=== PATIENT | female | born 1990 | race Caucasian/White ===

== ENCOUNTER 2016-06-01 14:51 | Emergency (ER) | payer OTHER ==
[2016-06-01 16:05] VITALS: BP 107/61
--- NOTE | 2016-06-01 16:52 | UC ---
Throat Pain/Nasal [place] HPI - HPI Summary HPI Summary: complaint of nasal congestion cough and sore throat that started 2 weeks ago both ears are constantly poopping thick green nasal discharge frequent headaches denies fever and chills taking acetaminophen and nasocort without relief LMP 05/02/16 2 home [ tests appt with residential treatment counselor ION 06/15/16 mild cramping feeling yesterday and today denies abdominal pain vaginal discharge or bleeding - History of Current Complaint Chief Complaint: UCRespiratory Stated Complaint: RESPIRATORY Time Seen by Provider: 06/01/16 16:43 Hx Obtained From: Patient Hx Last Menstrual Period: 05/02/16 - Allergies/Home Medications Allergies/Adverse Reactions: Allergies Allergy/AdvReac Type Severity Reaction Status Date / Time Amoxicillin Allergy Intermediate Hives Verified 06/01/16 16:05 Home Medications: Home Medications Cyclobenzaprine TAB* [Flexeril TAB*] 10 mg PO TID 06/01/16 [History Confirmed ] Loratadine [Claritin] 10 mg PO DAILY 06/01/16 [History Confirmed 06/01/16] Mometasone NASAL (NF) [Nasonex (NF)] 50 mcg NA DAILY 06/01/16 [History Confirmed 06/01/16] busPIRone TAB* [Buspar TAB*] 10 mg PO BID 06/01/16 [History Confirmed 06/01/16] PMH/Surg Hx/FS Hx/Imm Hx Previously Healthy: Yes - Respiratory History Of: Reports: Asthma - Surgical History Surgical History: Yes Surgery Procedure, Year, and Place: gallbladder - Family History Known Family History: Negative: Cardiac Disease, Hypertension, Diabetes - Social History Occupation: Unemployed Lives: With Family Alcohol Use: None Substance Use Type: None Smoking Status (MU): Heavy Every Day Tobacco Smoker Type: Cigarettes Amount Used/How Often: 1 ppd Length of Time of Smoking/Using Tobacco: since 17 age Have You Smoked in the Last Year: Yes Cessation Counseling: Patient Advised to Stop Review of Systems Constitutional: Negative Skin: Negative Eyes: Negative ENT: Sore Throat, Ear Ache, Nasal Discharge Respiratory: Cough Cardiovascular: Negative Gastrointestinal: Negative Genitourinary: Negative Motor: Negative Neurovascular: Negative Musculoskeletal: Negative Neurological: Negative Psychological: Negative All Other Systems Reviewed And Are Negative: Yes Physical Exam Triage Information Reviewed: Yes Appearance: No Pain Distress, Well-Nourished, Ill-Appearing Vital Signs: Initial Vital Signs Temp 98.5 F 06/01/16 15:57 Pulse 64 06/01/16 15:57 Resp 16 06/01/16 15:57 BP 107/61 06/01/16 15:57 Pulse Ox 100 06/01/16 15:57 Vital Signs Reviewed: Yes Eyes: Positive: Conjunctiva Clear ENT: Positive: Pharyngeal erythema, Nasal congestion, Nasal drainage, TMs normal , Other: - maxillary sinus tenderness Neck: Positive: No Lymphadenopathy Respiratory: Positive: Lungs clear, Normal breath sounds, No respiratory distress Cardiovascular: Positive: RRR, No Murmur Abdomen Description: Positive: Nontender, Soft. Negative: CVA Tenderness (R), CVA Tenderness (L), Distended, Guarding Bowel Sounds: Positive: Present Musculoskeletal: Positive: No Edema Neurological: Positive: Alert Psychological Exam: Normal Skin Exam: Normal Throat Pain/Nasal Course/Dx - Course Course Of Treatment: exam completed. pt illness over 2 weeks. alicia treat with zithromax as recommended by up to date for women with sinusitis. - negative for abdominal pain on exam, afebrile, no vaginal bleeding. 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 - discussed if she begins to have cramping and pain that is increasing to seek care in ED and pt states understanding - Differential Dx/Diagnosis Provider Diagnoses: sinusitis - Physician Notification/Consults Discussed Patient Care With: Dr Mcneill Time Discussed With Above Provider: 17:00 Discharge - Discharge Plan Condition: Stable Disposition: HOME Prescriptions: Azithromycin TAB* [Zithromax TAB (Z-RAPHAEL) 250 mg #6 tabs] 2 tab PO .TODAY, THEN 1 DAILY #1 raphael Patient Education Materials: Sinusitis (ED), (ED) Referrals: Non Staff,Doctor [Primary Care Provider] - [facility] [Outside] Additional Instructions: Please take antibiotic as directed. Increase fluids and rest Take acetaminophen for fever or pain I f you develop abdominal pain, vaginal bleeding heavy cramping or fever please seek care in the Emergency Department. Please review your discharge instructions. If your symptoms do not improve please call your primary care provider or return to urgent care.
== END 2016-06-01 17:22 | disposition home or self-care (01) ==
LOC: UCCORT 14:51
DX: O26.899 Other specified pregnancy related conditions, unspecified trimester (principal); J32.9 Chronic sinusitis, unspecified; Z88.0 Allergy status to penicillin; F17.210 Nicotine dependence, cigarettes, uncomplicated
CPT/HCPCS: 99202; G0463

== ENCOUNTER 2018-02-15 16:57 | Emergency (ER) | payer OTHER ==
[2018-02-15 17:34] VITALS: BP 101/68
[2018-02-15] MEDS ORDERED: Cyclobenzaprine TAB* 10 MG PO ONE (19:05)
[2018-02-15] MEDS ORDERED: Ketorolac INJ* 30 MG/ML 1 ML VIAL IM ONE (19:05)
[2018-02-15] MEDS ORDERED: Acetaminophen TAB* 325 MG PO ONE (19:05)
--- NOTE | 2018-02-15 20:46 | UC ---
General HPI - HPI Summary HPI Summary: pt complains of right shoulder, neck, and upper right back pain. she states that she fell a few days ago, landed on her right arm. she heard a crack in her neck. she has been having these pains as stated above. she has taken flexeril and it helped a little. - History of Current Complaint Chief Complaint: UCUpperExtremity Stated Complaint: RIGHT SHOULDER PAIN Hx Obtained From: Patient Hx Last Menstrual Period: 01/31/18 has had tubal Onset/Duration: Sudden Onset Onset Severity: Moderate Current Severity: Moderate Pain Intensity: 6 Associated Signs & Symptoms: Positive: Back Pain, Trauma. Negative: Abdominal Pain, Confusion, Cough, Chest Pain, Dizziness, Diarrhea, Dysuria, Edema, Fever, Headache, Hemoptysis, Melena, Nausea, Palpitations, Syncope, SOB, Vomiting, Wheezing, Weakness - Allergy/Home Medications Allergies/Adverse Reactions: Allergies Allergy/AdvReac Type Severity Reaction Status Date / Time amoxicillin Allergy Intermediate Rash Verified 02/15/18 17:34 Penicillins Allergy Intermediate Rash Verified 02/15/18 17:34 Home Medications: Home Medications diPHENhydraMINE PO* [Benadryl PO 25 MG TAB*] 25 mg PO BEDTIME PRN 02/15/18 [ History Confirmed 02/15/18] PMH/Surg Hx/FS Hx/Imm Hx Previously Healthy: Yes - Surgical History Surgical History: Yes Surgery Procedure, Year, and Place: gallbladder. removal of fallopian tubes - Family History Known Family History: Negative: Cardiac Disease, Hypertension, Diabetes - Social History Alcohol Use: Rare Substance Use Type: None Smoking Status (MU): Heavy Every Day Tobacco Smoker Type: Cigarettes Amount Used/How Often: 1/2 to 1 ppd Length of Time of Smoking/Using Tobacco: since 17 age Have You Smoked in the Last Year: Yes Review of Systems Constitutional: Negative Skin: Negative Eyes: Negative ENT: Negative Respiratory: Negative Cardiovascular: Negative Gastrointestinal: Negative Motor: Negative Neurovascular: Negative Musculoskeletal: Other: - right shoulder upper chest and upper back pain Neurological: Negative Psychological: Negative Is Patient Immunocompromised?: No All Other Systems Reviewed And Are Negative: No Physical Exam Triage Information Reviewed: Yes Appearance: Well-Appearing, No Pain Distress, Well-Nourished, Ill-Appearing Vital Signs: Initial Vital Signs Temp 97.3 F 02/15/18 17:26 Pulse 88 02/15/18 17:26 Resp 17 02/15/18 17:26 BP 101/68 02/15/18 17:26 Pulse Ox 99 02/15/18 17:26 Vital Signs Reviewed: Yes Eye Exam: Normal Eyes: Positive: Conjunctiva Clear, Conjunctiva Inflamed ENT Exam: Normal ENT: Positive: Hearing grossly normal, Pharyngeal erythema, TMs normal. Negative: Nasal drainage, Tonsillar exudate, Trismus Dental Exam: Normal Neck exam: Normal Neck: Positive: Supple, Nontender Respiratory Exam: Normal Respiratory: Positive: Chest non-tender, Lungs clear, Normal breath sounds, No respiratory distress Cardiovascular Exam: Normal Cardiovascular: Positive: RRR, No Murmur, Pulses Normal Abdomen Description: Positive: Nontender, Soft Bowel Sounds: Positive: Present Musculoskeletal: Positive: Other: - pt is tender to palpation to her right trapezius muscle and her right upper chest wall. she is able to raise her right arm all the way to her right ear without any difficulty. Neurological Exam: Normal Psychological Exam: Normal Course/Dx - Course Course Of Treatment: xrays of c-spine, chest and right shoulder show no evidence of frx. pt given tylenol, motrin and flexeril. she is feeling better. she was given a work excuse. she states she still has flexeril at home. - Differential Dx - Multi-Symptom Provider Diagnoses: muscle strain Discharge - Sign-Out/Discharge Documenting (check all that apply): Patient Departure All imaging exams completed and their final reports reviewed: Yes - Discharge Plan Condition: Stable Disposition: HOME Patient Education Materials: Muscle Strain (ED) Forms: *Work Release Referrals: Dandre Duggan MD [Primary Care Provider] - Additional Instructions: Take tylenol, motrin, and the flexeril as previously prescribed. return if worse or any new symptoms. Please follow up with your doctor in 2 days. Avoid any heavy lifting or straining. - Billing Disposition and Condition Condition: STABLE Disposition: Home
--- NOTE | 2018-02-16 07:43 | RAD ---
HISTORY: pain COMPARISONS: None VIEWS: 4 , Frontal internal rotation, external rotation, outlet, and axillary views of the right shoulder FINDINGS: BONE DENSITY: Normal. BONES: There is no displaced fracture. JOINTS: There is no arthropathy. ALIGNMENT: There is no dislocation. SOFT TISSUES: Unremarkable. OTHER FINDINGS: None. IMPRESSION: NO ACUTE OSSEOUS INJURY. IF SYMPTOMS PERSIST, RECOMMEND REPEAT IMAGING. R0
--- NOTE | 2018-02-16 07:43 | RAD ---
HISTORY: pain, s/p fall, trauma 1 week ago COMPARISONS: None VIEWS: 3 , Frontal, lateral, and open-mouth odontoid views of the cervical spine. FINDINGS: The cervical spine is visualized from the skull base through C7 . ALIGNMENT: There is suboptimal visualization of the C7-T1 alignment. There is straightening of the normal cervical lordosis. VERTEBRAL BODIES: The odontoid process is intact. The atlantoaxial intervals are symmetric. JOINTS: There is no subluxation or dislocation. The facet joints are unremarkable. INTERVERTEBRAL DISCS: There is diffuse loss of intervertebral disc height. SOFT TISSUE: The prevertebral soft tissues are normal. OTHER: The skull base is normal. The lung apices are clear. IMPRESSION: 1. THERE IS SUBOPTIMAL VISUALIZATION OF THE C7-T1 ALIGNMENT ON THE LATERAL VIEW. 2. STRAIGHTENING OF THE CERVICAL LORDOSIS. 3. NO ACUTE OSSEOUS INJURY WITHIN THE VISUALIZED PORTION OF THE CERVICAL SPINE. R2
--- NOTE | 2018-02-16 07:44 | RAD ---
INDICATION: Anterior chest pain post fall one week ago. COMPARISON: No relevant prior exams available on the [facility] for comparison. TECHNIQUE: Dual energy PA and routine lateral views of the chest were obtained. REPORT: Clear lungs and pleural spaces. Negative for pneumothorax. The heart, pulmonary vasculature, and mediastinal contours are unremarkable. Unremarkable osseous structures and soft tissue contours. Gallbladder fossa level surgical clips. IMPRESSION: #. No radiographic evidence for traumatic thoracic injury or acute intrathoracic process. R1
== END 2018-02-15 21:05 | disposition home or self-care (01) ==
LOC: UCCORT 16:57
DX: S46.911A Strain of unspecified muscle, fascia and tendon at shoulder and upper arm level, right arm, initial encounter (principal); W19.XXXA Unspecified fall, initial encounter; Y93.9 Activity, unspecified; Y92.9 Unspecified place or not applicable; Z88.0 Allergy status to penicillin; F17.210 Nicotine dependence, cigarettes, uncomplicated
CPT/HCPCS: 71046; 72040; 96372; 99212; A9270-GY; G0463; J1885

== ENCOUNTER 2019-06-06 17:12 | Emergency (ER) | payer OTHER ==
[2019-06-06 17:37] VITALS: BP 106/63
--- NOTE | 2019-06-06 17:42 | UC ---
Neck Pain HPI - HPI Summary HPI Summary: 29 yo with onset of pain in the back of the neck this morning, without recall of injury, although she and her brother were playing around with her children a few days ago and she thinks she could have strained that way. She has used one dose of acetaminophen today without relief. Pain relieved by supporting the back of her neck. - History of Current Complaint Chief Complaint: UCGeneralIllness Stated Complaint: NECK PAIN/HEAD SWELLING Time Seen by Provider: 06/06/19 17:31 Hx Obtained From: Patient Hx Last Menstrual Period: 06/01/19 Mechanism Of Injury: No Known Trauma Timing: Constant Onset/Duration: Sudden Onset Severity: Moderate Pain Intensity: 8 Location: Radiates To: - right arm Character: Aching, Stiff Aggravating Factors: Position, Movement Alleviating Factors: Nothing Associated Signs & Symptoms: Positive: Headache, Paresthesia - right hand distal third digit - Risk Factors Meningitis Risk Factors: Negative - Allergies/Home Medications Allergies/Adverse Reactions: Allergies Allergy/AdvReac Type Severity Reaction Status Date / Time amoxicillin Allergy Intermediate Rash Verified 06/06/19 17:37 Penicillins Allergy Intermediate Rash Verified 06/06/19 17:37 Home Medications: Home Medications Acid Pill 06/06/19 [History] PMH/Surg Hx/FS Hx/Imm Hx - Additional Past Medical History Additional PMH: recent biopsy of her throat was "negative" per patient (Dr. Monahan-04/04) Previously Healthy: No - Smoker Psychological History: Anxiety - Surgical History Surgical History: Yes Surgery Procedure, Year, and Place: gallbladder. removal of fallopian tubes. throat bx-03/2019 - Family History Known Family History: Positive: Cardiac Disease - mother had NM and cardiac arrest 2019 Negative: Hypertension, Diabetes - Social History Occupation: Employed Part-time Lives: With Family Alcohol Use: Rare Substance Use Type: None Smoking Status (MU): Heavy Every Day Tobacco Smoker Type: Cigarettes Amount Used/How Often: 1/2 to 1 ppd Length of Time of Smoking/Using Tobacco: since 17 age Have You Smoked in the Last Year: Yes Review of Systems All Other Systems Reviewed And Are Negative: Yes Constitutional: Positive: Negative Skin: Positive: Negative Eyes: Positive: Negative ENT: Positive: Negative Respiratory: Positive: Negative Cardiovascular: Positive: Negative Gastrointestinal: Positive: Negative Genitourinary: Positive: Negative Motor: Positive: Negative Neurovascular: Positive: Negative Musculoskeletal: Positive: Arthralgia Neurological: Positive: Headache. Negative: Weakness Psychological: Positive: Anxious Is Patient Immunocompromised?: No Physical Exam Triage Information Reviewed: Yes Appearance: Ill-Appearing - looks chronically unwell, Pain Distress - mild to moderate Vital Signs: Initial Vital Signs Temp 98.4 F 06/06/19 17:31 Pulse 75 06/06/19 17:31 Resp 16 06/06/19 17:31 BP 106/63 06/06/19 17:31 Pulse Ox 100 06/06/19 17:31 ENT: Positive: Pharynx normal, TMs normal Neck exam: Other - no swelling, warmth or erythema noted in skin of head and neck. Neck: Positive: Tenderness @ - cervical spine top to bottom Respiratory: Positive: Lungs clear, Normal breath sounds Cardiovascular: Positive: RRR, No Murmur Musculoskeletal Exam: Normal Musculoskeletal: Positive: ROM Limited @ - cervical Neurological Exam: Other - No pronator drift, normal hand conservator artifacts without muscle wasting, normal DTR's. Neurological: Positive: Alert, Muscle Tone Normal Psychological Exam: Other - anxious Skin Exam: Normal Diagnostics - Radiology No standard instances Radiology Interpretation Completed By: ED Physician Summary of Radiographic Findings: Flat lordotic curve without evidence of bony injury. Neck Pain Course/Dx - Course Course Of Treatment: Toradol with some relief. Warm moist heat, off work, increase flexeril to bid ot tid temporarily. - Differential Dx/Diagnosis Differential Dx/HQI/PQRI: Sprain, Torticollis Provider Diagnosis: Acute torticollis Discharge ED - Sign-Out/Discharge Documenting (check all that apply): Patient Departure All imaging exams completed and their final reports reviewed: No - Discharge Plan Condition: Stable Disposition: HOME Prescriptions: Naproxen [Naproxen 500 mg tab] 500 mg PO BID #30 tablet Patient Education Materials: Spasmodic Torticollis (ED) Forms: *Work Release Referrals: Dandre Duggan MD [Primary Care Provider] - Additional Instructions: Use naproxen twice daily for relief of pain, taking it with food. Stop if it causes upset stomach or nausea. Increase flexeril to 2 or 3 times per day, and apply warm moist heat to your neck. The radiologist will review my reading of the xrays tomorrow, and you will be called if there is a discrepancy. You have a referral for physical therapy. Follow up with your community health doctor in a week to review progress. - Billing Disposition and Condition Condition: STABLE Disposition: Home
[2019-06-06] MEDS ORDERED: Ketorolac *IM* INJ* 60 MG/2 ML VIAL IM ONE (17:54)
--- NOTE | 2019-06-07 07:05 | UC ---
- Progress Note Progress Note: xray report cervical spine: IMPRESSION: STRAIGHTENING OF THE CERVICAL SPINE, OTHERWISE UNREMARKABLE STUDY. Course/Dx - Diagnoses Provider Diagnoses: Acute torticollis Discharge ED - Sign-Out/Discharge Documenting (check all that apply): Patient Departure All imaging exams completed and their final reports reviewed: Yes - Discharge Plan Condition: Stable Disposition: HOME Prescriptions: Naproxen [Naproxen 500 mg tab] 500 mg PO BID #30 tablet Patient Education Materials: Spasmodic Torticollis (ED) Forms: *Work Release Referrals: Dandre Duggan MD [Primary Care Provider] - Additional Instructions: Use naproxen twice daily for relief of pain, taking it with food. Stop if it causes upset stomach or nausea. Increase flexeril to 2 or 3 times per day, and apply warm moist heat to your neck. The radiologist will review my reading of the xrays tomorrow, and you will be called if there is a discrepancy. You have a referral for physical therapy. Follow up with your [facility] doctor in a week to review progress. - Billing Disposition and Condition Condition: STABLE Disposition: Home
== END 2019-06-06 19:07 | disposition home or self-care (01) ==
LOC: UCCORT 17:12
DX: M43.6 Torticollis (principal); F17.210 Nicotine dependence, cigarettes, uncomplicated; Z88.0 Allergy status to penicillin
CPT/HCPCS: 72050; 96372; 99212; G0463; J1885